=== PATIENT | male | born 1965 | race Hispanic/Latino ===

== ENCOUNTER 2017-01-07 18:32 | Emergency (ER) | payer MEDICARE, OTHER ==
[2017-01-07 18:42] VITALS: BP 98/65; PULSE 79; RESP 18; TEMP 97.8; O2SAT 100
--- NOTE | 2017-01-07 18:57 | ED PDOC ---
Lower Extremity Pain/Injury Time Seen by Provider: 01/07/17 18:44 Chief Complaint (Nursing): Lower Extremity Problem/Injury Chief Complaint (Provider): Right knee pain History Per: Patient, Family Additional Complaint(s): 51 y/o male with a past medical history of down syndrome who presents to the emergency department with a complaint of a right knee pain after bowling with family yesterday, 01/06/2017, around 11pm. As per history from family member, patient appeared to have knee buckling, was given Motrin around 1500, and brought to the emergency department for an evaluation. Denies any further medical complaints. PMD: Dr. Heron Flores MD Past Medical History Reviewed: Historical Data, Nursing Documentation, Vital Signs Vital Signs: Last Vital Signs Temp 97.8 F 01/07/17 18:35 Pulse 79 01/07/17 18:35 Resp 18 01/07/17 18:35 BP 98/65 L 01/07/17 18:35 Pulse Ox 100 01/07/17 18:35 - Medical History PMH: Asthma, Hyperlipidemia Other PMH: Down syndrome - Surgical History Surgical History: No Surg Hx - Family History Family History: States: Unknown Family Hx - Living Arrangements Living Arrangements: With Family - Social History Current smoker - smoking cessation education provided: No Alcohol: None Drugs: Denies - Home Medications Home Medications: Ambulatory Orders Medication Instructions Recorded Ibuprofen [Motrin] 600 mg PO Q8 PRN #21 tab 01/31/15 Naproxen 375 mg PO Q8 PRN #21 tablet 01/07/17 - Allergies Allergies/Adverse Reactions: Allergies Allergy/AdvReac Type Severity Reaction Status Date / Time No Known Allergies Allergy Verified 01/31/15 14:33 Review of Systems ROS Statement: Except As Marked, All Systems Reviewed And Found Negative (As per HPI otherwise negative) Musculoskeletal: Positive for: Other (Right knee pain) Physical Exam - Reviewed Nursing Documentation Reviewed: Yes Vital Signs Reviewed: Yes - Physical Exam Appears: Positive for: Non-toxic, No Acute Distress Head Exam: Positive for: ATRAUMATIC, NORMAL INSPECTION, NORMOCEPHALIC Skin: Positive for: Normal Color, Warm, Dry Extremity: Positive for: Normal ROM (Able to flex and extend toes without difficulty), Calf Tenderness (Tenderness to the proximal region of right calf). Negative for: Other (Negative lynne's sign. No effusion noted to the right knee) Neurologic/Psych: Positive for: Alert, Oriented (x3) - ECG O2 Sat by Pulse Oximetry: 100 (RA) Pulse Ox Interpretation: Normal - Progress ED Course And Treament: xry of knee: no acute injury Duplex of right leg: no dvt Medical Decision Making Medical Decision Making: Time: 1853 Initial Impression: Right knee pain s/p bowling Initial Plan: --Right knee x-ray --Duplex Lower Extrm US --Reevaluation Scribe Attestation: Documented by Jessie Alexandra, acting as a scribe for Juliette monreal PA-C. Provider Scribe Attestation: All medical record entries made by the Scribe were at my direction and personally dictated by me. I have reviewed the chart and agree that the record accurately reflects my personal performance of the history, physical exam, medical decision making, and the department course for this patient. I have also personally directed, reviewed, and agree with the discharge instructions and disposition. Disposition - Clinical Impression Clinical Impression: Knee strain - Patient ED Disposition Is Patient to be Admitted: No - Disposition Referrals: Sancho Badillo MD [Staff Provider] - Disposition: Routine/Home Disposition Time: 19:56 Condition: FAIR Prescriptions: Naproxen 375 mg PO Q8 PRN #21 tablet PRN Reason: Pain, Moderate (4-7) Instructions: Knee Pain (ED) Forms: [employer] (Bulgarian)
--- NOTE | 2017-01-07 20:38 | US ---
EXAM: US Duplex Right Lower Extremity Veins EXAM DATE/TIME: 01/07/2017 7:44 PM CLINICAL HISTORY: 51 years old, male; Pain; Leg, lower; Right; Additional info: R/O dvt TECHNIQUE: Real-time ultrasound scan of the veins of the right lower extremity with color Doppler flow, spectral waveform analysis and compression. COMPARISON: No relevant prior studies available. FINDINGS: Normal-appearing compressibility, flow and augmentation response are seen in the right common femoral, femoral, popliteal and posterior tibial veins. IMPRESSION: NO EVIDENCE OF DEEP VENOUS THROMBOSIS IN THE RIGHT LEG.
--- NOTE | 2017-01-08 10:26 | RAD ---
PROCEDURE: Right Knee Radiographs. HISTORY: knee pain COMPARISON: None. FINDINGS: BONES: Three views of the right knee were performed for right knee pain and trauma. There is a small curvilinear lucency seen in the lateral tibial plateau region on the frontal view. This could represent vascular channel, however a small nondisplaced fracture in this region could not be excluded. Correlation with symptoms would be suggested. Right fibula is intact. Very mild degenerative changes are seen elsewhere. Possible small No joint effusion is seen. Patella has some minor lateral patellar tilting and subluxation. JOINTS: Mild degenerative changes. JOINT EFFUSION: Small joint effusion OTHER FINDINGS: No loose body is seen. No focal osteochondral defect is noted. IMPRESSION: Small curvilinear lucency at the lateral tibial plateau region which may reflect a vascular channel, however a small nondisplaced fracture is not excluded. No preliminary reading was provided by the emergency room physician at the time of the exam. Therefore this was called into the emergency room as a variance. On-call emergency room physician was notified.
== END 2017-01-07 20:25 | disposition home or self-care (01) ==
LOC: H.ER 18:32
DX: S86.911A Strain of unspecified muscle(s) and tendon(s) at lower leg level, right leg, initial encounter (principal); X58.XXXA Exposure to other specified factors, initial encounter; Y93.54 Activity, bowling

== ENCOUNTER 2017-01-08 11:05 | Emergency (ER) | payer MEDICARE, OTHER ==
[2017-01-08 11:15] VITALS: BP 116/65; PULSE 78; RESP 18; TEMP 98.1; O2SAT 96
--- NOTE | 2017-01-08 11:40 | ED PDOC ---
Lower Extremity Pain/Injury Time Seen by Provider: 01/08/17 11:21 Chief Complaint (Nursing): Lower Extremity Problem/Injury Chief Complaint (Provider): called back for further knee imaging History Per: Family, Other (prior chart) Onset/Duration Of Symptoms: Days (2-3) Current Symptoms Are (Timing): Still Present Additional Complaint(s): 51yo male with history of Downs Syndrome represents w family, called back for further imaging after radiologist concerned about small lucency in tibial plateau- could be vascular groove vs nondisplaced fracture. Per family patient has been favoring right leg/knee, was bowling and afterwards was walking and then wouldnt place weight on R knee, no falls or known observed trauma, Since then he has been ambulating but with CHRISTA bandage and some limping. No reports head or neck trauma. Past Medical History Reviewed: Historical Data, Nursing Documentation, Vital Signs Vital Signs: Last Vital Signs Temp 98.1 F 01/08/17 11:12 Pulse 78 01/08/17 11:12 Resp 18 01/08/17 11:12 BP 116/65 01/08/17 11:12 Pulse Ox 96 01/08/17 11:12 - Medical History PMH: Asthma, Hyperlipidemia Other PMH: Downs Syndrome - Family History Family History: States: Unknown Family Hx - Living Arrangements Living Arrangements: With Family - Social History Current smoker - smoking cessation education provided: No - Home Medications Home Medications: Ambulatory Orders Medication Instructions Recorded Ibuprofen [Motrin] 600 mg PO Q8 PRN #21 tab 01/31/15 Naproxen 375 mg PO Q8 PRN #21 tablet 01/07/17 - Allergies Allergies/Adverse Reactions: Allergies Allergy/AdvReac Type Severity Reaction Status Date / Time No Known Allergies Allergy Verified 01/31/15 14:33 Review of Systems ROS Statement: Except As Marked, All Systems Reviewed And Found Negative (per family) Constitutional: Negative for: Fever, Chills ENT: Negative for: Ear Discharge, Nose Discharge Cardiovascular: Negative for: Orthopnea Respiratory: Negative for: Shortness of Breath Musculoskeletal: Positive for: Leg Pain Skin: Negative for: Rash Neurological: Negative for: Seizures, Altered Mental Status Physical Exam - Reviewed Nursing Documentation Reviewed: Yes Vital Signs Reviewed: Yes - Physical Exam Appears: Positive for: Well, Non-toxic (Downs syndrome features) Cardiovascular/Chest: Negative for: Tachycardia Respiratory: Negative for: Respiratory Distress Extremity: Positive for: Other (mild R knee tenderness, minimal tenderness tibial plateau, FROM ankles and hips) - ECG O2 Sat by Pulse Oximetry: 96 (RA) Pulse Ox Interpretation: Normal Medical Decision Making Medical Decision Making: to obtain CT knee r/o fracture given XR report tylenol ordered for pain 1430 patient did not tolerate lying flat for CT imaging. Unable to position patient successfully for accurate imaging on CT table. Pt w history of Downs Syndrome w poor insight. Sister is legal guardian, states will take home to followup as outpatient. Dr Foy paged to inform, he will see in office tomorrow to attempt to arrange outpatient imaging. Patient is ambulatory with minimal gait disturbance. Knee immobilizer given but sister thinks will be poorly tolerated by patient. On re-eval he was sitting "mongolian style" and in no distress. Explained importance of definitive imaging, potential for ligamentous injury besides plateau fx, and need for followup. Disposition - Clinical Impression Clinical Impression: Knee injury - Patient ED Disposition Is Patient to be Admitted: No Counseled Patient/Family Regarding: Studies Performed, Diagnosis, Need For Followup, Rx Given - Disposition Referrals: Amaury Driscoll III, MD [Staff Provider] - Disposition: Routine/Home Disposition Time: 15:30 Condition: GOOD Additional Instructions: See orthopedics for definitive care and testing. You may need further testing. Unable to get CT knee today due to intolerance of lying flat. Recommend outpatient workup, may require MRI, CT under sedation, or repeat XRay in 4-[address] Foy is aware of your case, stop into office tomorrow for re-evaluation. Instructions: Knee Pain (ED), Arthralgia (ED) Forms: [employer] (Japanese)
== END 2017-01-08 15:31 | disposition home or self-care (01) ==
LOC: H.ER 11:05
DX: M25.561 Pain in right knee (principal)

== ENCOUNTER 2017-04-10 15:33 | Emergency (ER) | payer MEDICARE, OTHER ==
[2017-04-10 15:39] VITALS: BP 100/58; TEMP 98
--- NOTE | 2017-04-10 16:54 | ED PDOC ---
HPI: Abdomen Time Seen by Provider: 04/10/17 15:59 Chief Complaint (Nursing): Abdominal Pain Chief Complaint (Provider): Abdominal Pain History Per: Family (Mother) History/Exam Limitations: no limitations Onset/Duration Of Symptoms: Worse Since (yesterday) Current Symptoms Are (Timing): Still Present Additional Complaint(s): 51 y/o male with a past medical history of Down syndrome, brought to the ER by mother for 1 month history of intermittent mild abdominal pain. On Monday patient saw PMD, who recommended a laxative, however yesterday the pain acutely worsened and persists in severity today. Patient also with decreased appetite today, but is tolerating liquids. Mother reports patient is making retching noises but no vomiting. Mother also states patient has bowel movement every 2-3 days despite her daily reminders to go. No urinary symptoms, fever, chills, melena, or hematochezia. Mother denies dietary changes. PMD: Dr. Flores Past Medical History Reviewed: Historical Data, Nursing Documentation, Vital Signs Vital Signs: Last Vital Signs Temp 98.0 F 04/10/17 15:36 Pulse 78 04/10/17 19:25 Resp 18 04/10/17 19:25 BP 100/58 L 04/10/17 15:36 Pulse Ox 95 04/10/17 20:31 - Medical History PMH: Asthma, Hyperlipidemia Other PMH: Down syndrome - Surgical History Surgical History: No Surg Hx - Family History Family History: States: Unknown Family Hx - Living Arrangements Living Arrangements: With Family - Social History Current smoker - smoking cessation education provided: No Alcohol: None Drugs: Denies - Home Medications Home Medications: Ambulatory Orders Medication Instructions Recorded Ibuprofen [Motrin] 600 mg PO Q8 PRN #21 tab 01/31/15 Naproxen 375 mg PO Q8 PRN #21 tablet 01/07/17 Dicyclomine [Bentyl] 20 mg PO BID PRN #30 tab 04/10/17 - Allergies Allergies/Adverse Reactions: Allergies Allergy/AdvReac Type Severity Reaction Status Date / Time No Known Allergies Allergy Verified 01/31/15 14:33 Review of Systems ROS Statement: Except As Marked, All Systems Reviewed And Found Negative (As per HPI, otherwise negative) Constitutional: Negative for: Fever, Chills Gastrointestinal: Positive for: Nausea (with retching behavior), Abdominal Pain , Constipation, Other (Decreased appetite). Negative for: Vomiting, Melena, Hematochezia Genitourinary Male: Negative for: Dysuria, Frequency, Incontinence, Hematuria Physical Exam - Reviewed Nursing Documentation Reviewed: Yes Vital Signs Reviewed: Yes - Physical Exam Appears: Positive for: No Acute Distress (appear younger than given age) Head Exam: Positive for: ATRAUMATIC (Downs syndrome anatomy) Skin: Positive for: Warm, Dry Eye Exam: Positive for: EOMI, PERRL ENT: Positive for: Pharynx Is (clear), Other (dry mucus membranes) Neck: Positive for: Painless ROM, Supple Cardiovascular/Chest: Positive for: Regular Rate, Rhythm, Chest Non Tender. Negative for: Murmur Respiratory: Positive for: Normal Breath Sounds. Negative for: Respiratory Distress Gastrointestinal/Abdominal: Positive for: Bowel Sounds, Soft, Tenderness ( diffuse), Distended (soft). Negative for: Mass, Guarding, Rebound Back: Positive for: Normal Inspection. Negative for: Decreased ROM Extremity: Positive for: Normal ROM. Negative for: Deformity Lymphatic: Negative for: Adenopathy Neurologic/Psych: Positive for: Alert. Negative for: Motor/Sensory Deficits - Laboratory Results Result Diagrams: 04/10/17 16:53 04/10/17 16:53 - ECG O2 Sat by Pulse Oximetry: 95 (RA) Pulse Ox Interpretation: Normal Medical Decision Making Medical Decision Making: Initial Impression: Abdominal pain Differential includes but is not limited to: constipation, gastroenteritis, colitis, pancreatitis Time: 16:21 Initial Plan: --Lactic acid --Lipase --Magnesium --Phosphorous --CMP --CBC w/ differential --PTT --Prothrombin time --ED urine dipstick --Blood culture --Urine culture --Pending X-Ray Obstructive Series Time: 17:55 Labs with no emergently significant abnormalities. X-Ray Obstructive Series demonstrates mildly dilated loops of bowel and multiple air fluid levels. Discussed findings with parents, and patient will have CT in the ER. Mother is concerned due to patients fear of CT scans. Patient will be given Lorazepam and Benadryl for anxiolysis, and started on IV fluids. Accession No. : [id number] Patient Name / ID : DIDIER DENISE / [id number] Exam Date : 04/10/2017 16:59:07 ( Approved ) Study Comment : Sex / Age : M / 51Y Creator : Mary Alfaro MD Dictator : Mary Alfaro MD Application Infrastructure Engineer : Char Puller : Mary Alfaro MD Approver2 : Report Date : 04/10/2017 17:50:05 My Comment : PROCEDURE: Radiographs of the chest and abdomen (obstructive series) HISTORY: abdominal pain COMPARISON: None available. TECHNIQUE: AP radiograph of the chest, with upright and supine radiographs of the abdomen. FINDINGS: Examination limited by habitus. CHEST: Cardiomegaly. Probable small bilateral pleural effusions and bibasilar atelectasis/ infiltrates. Mild pulmonary venous congestion. No definite pneumothorax. Please note that chest x-ray has limited sensitivity for the detection of pulmonary masses. ABDOMEN AND PELVIS: Nonspecific bowel gas pattern with evidence of several air-fluid levels. No definite free air. Degenerative changes. IMPRESSION: Cardiomegaly. Probable small bilateral pleural effusions and bibasilar atelectasis/ infiltrates. Mild pulmonary venous congestion. Nonspecific bowel gas pattern with evidence of several air-fluid levels. Suggest clinical correlation and CT of the abdomen and pelvis for further evaluation if indicated. Pt sleepy. Able to go for CT. Patient Name: HOWIE VELÁSQUEZ (Age): 1965 51 Gender: M Date of Exam: 04/10/2017 Referring Physician: Nisa Nunez # of Images: [id number] Ordered As: CT ABD PELVIS IV CONTRAST ONLY Page 1 of 2 EXAM: CT Abdomen and Pelvis With Intravenous Contrast EXAM DATE/TIME: 04/10/2017 5:59 PM CLINICAL HISTORY: 51 years old, male; Pain; Abdominal pain; Generalized; Additional info: Abd pain TECHNIQUE: Axial computed tomography images of the abdomen and pelvis with intravenous contrast. All CT scans at this facility use one or more dose reduction techniques, viz.: automated exposure control; ma/kV adjustment per patient size (including targeted exams where dose is matched to indication; i.e. head); or iterative reconstruction technique. Coronal and sagittal reformatted images were created and reviewed. CONTRAST: 80 mL of [id number] administered intravenously. COMPARISON: No relevant prior studies available. FINDINGS: Lower thorax: No acute findings. ABDOMEN: Liver: There are no focal liver lesions present. There is hepatomegaly and fatty infiltration of the liver. Gallbladder and bile ducts: Unremarkable. No calcified stones. No ductal dilation. Pancreas: Unremarkable. No mass. No ductal dilation. Spleen: Unremarkable. No splenomegaly. Adrenals: Unremarkable. No mass. Kidneys and ureters: Small cyst in the right kidney. No solid mass. No hydronephrosis. Stomach and bowel: Fluid filled colon without wall thickening or significant dilation, consistent with a nonspecific diarrheal illness. No obstruction. No mucosal thickening. Appendix: The appendix is not identified with certainty, but there are no secondary C.T. findings of appendicitis. PELVIS: Bladder: Apparent bladder wall thickening may be secondary to incomplete filling versus cystitis. Reproductive: Unremarkable as visualized. ABDOMEN and PELVIS: Intraperitoneal space: Unremarkable. No free air. No significant fluid collection. Bones/joints: No acute fracture. No dislocation. Soft tissues: There is a small fat-containing umbilical hernia. Vasculature: Unremarkable. No abdominal aortic aneurysm. Lymph nodes: Unremarkable. No enlarged lymph nodes. IMPRESSION: Apparent bladder wall thickening may be secondary to incomplete filling versus cystitis. Clinical and laboratory correlation recommended. Fluid filled colon without wall thickening or significant dilation, consistent with a nonspecific diarrheal illness. Thank you for allowing us to participate in the care of your patient. Dictated and Authenticated by: Kavya Linton MD 04/10/2017 7:48 PM Eastern Time ([place] & [place]) DW parents findings. Pt sleepy from anxiolytic. Will continue to observe until more alert. Mother reports that patient had "messy" bowel movements over last two days, but didn't actually see it, so was not sure if it was diarrhea. Advised to DC colace. Will rx Bentyl for pain and pt to f/u tomorrow with Dr Flores. 830p Pt awake and alert. Ambulating without difficulty. STable for DC. Scribe Attestation: Documented by Bernarda Choudhury, acting as a scribe for Nisa Nunez MD Provider Scribe Attestation: All medical record entries made by the Scribe were at my direction and personally dictated by me. I have reviewed the chart and agree that the record accurately reflects my personal performance of the history, physical exam, medical decision making, and the department course for this patient. I have also personally directed, reviewed, and agree with the discharge instructions and disposition. Disposition - Clinical Impression Clinical Impression: Abdominal pain, Diarrhea Counseled Patient/Family Regarding: Studies Performed, Diagnosis, Need For Followup, Rx Given - Disposition Referrals: Heron Flores MD [Staff Provider] - 04/11/17 (FOLLOW UP WITH DR FLORES TOMORROW FOR REEVALUATION) Disposition: Routine/Home Disposition Time: 20:26 Condition: STABLE Prescriptions: Dicyclomine [Bentyl] 20 mg PO BID PRN #30 tab PRN Reason: abdominal pain Instructions: Acute Diarrhea (ED), Abdominal Pain (ED), Nutrition Tips for Relief of Diarrhea (ED) Forms: [employer] (Maldivian)
[2017-04-10 17:02] LABS: BASO % 0.2 % (0.0-2.0); EOS % 0.3 % (0.0-4.0); HEMOGLOBIN 16.2 g/dL (12.0-18.0); LYMPH # 0.3 K/uL (1.0-4.3); LYMPH % 4.1 % (20.0-40.0); MEAN CELL VOLUME 99.3 fl (80.0-94.0); MEAN CORPUSCULAR HEMOGLOBIN 33.2 pg (27.0-31.0); MEAN CORPUSCULAR HGB CONC 33.4 g/dL (33.0-37.0); MEAN PLATELET VOLUME 7.1 fl (7.2-11.7); MONO # 0.6 K/uL (0.0-0.8); MONO % 8.2 % (0.0-10.0); NEUT # 6.5 K/uL (1.8-7.0); NEUT % 87.2 % (50.0-75.0); NRBC % 0.1 % (0.0-0.0); PLATELET COUNT 257 K/uL (130-400); RBC 4.88 Mil/uL (4.40-5.90); RED CELL DISTRIBUTION WIDTH 13.8 % (11.5-14.5); WHITE BLOOD COUNT 7.5 K/uL (4.8-10.8)
[2017-04-10 17:15] LABS: ALB/GLOB RATIO 1.1 (1.0-2.1); ALT/SGPT 39 U/L (21-72); AST/SGOT 34 U/L (17-59); BLOOD UREA NITROGEN 16 mg/dl (9-20); CALCIUM 8.6 mg/dL (8.4-10.2); GFR AFRICAN-AMERICAN > 60; GFR NON-AFRICAN AMERICAN > 60; LIPASE 110 U/L (23-300)
[2017-04-10 17:20] LABS: INR 1.3 (0.9-1.2); PARTIAL THROMBOPLASTIN TIME 33.6 Seconds (25.6-37.1); PROTHROMBIN TIME 14.4 Seconds (9.8-13.1)
[2017-04-10 17:47] LABS: BANDS 2 % (0-2); LYMPHOCYTE 5 % (20-50); MONOCYTE 9 % (0-10); NEUTROPHIL 84 % (42-75); PLATELET ESTIMATE NORMAL (NORMAL); TOTAL CELLS COUNTED 100
[2017-04-10] MEDS ORDERED: DiphenhydrAMINE 50 mg/ml Inj IVP STA (17:51)
[2017-04-10] MEDS ORDERED: Sodium Chloride 0.9% 1,000 ML IV STA (17:51)
--- NOTE | 2017-04-10 17:51 | RAD ---
PROCEDURE: Radiographs of the chest and abdomen (obstructive series) HISTORY: abdominal pain COMPARISON: None available. TECHNIQUE: AP radiograph of the chest, with upright and supine radiographs of the abdomen. FINDINGS: Examination limited by habitus. CHEST: Cardiomegaly. Probable small bilateral pleural effusions and bibasilar atelectasis/ infiltrates. Mild pulmonary venous congestion. No definite pneumothorax. Please note that chest x-ray has limited sensitivity for the detection of pulmonary masses. ABDOMEN AND PELVIS: Nonspecific bowel gas pattern with evidence of several air-fluid levels. No definite free air. Degenerative changes. IMPRESSION: Cardiomegaly. Probable small bilateral pleural effusions and bibasilar atelectasis/infiltrates. Mild pulmonary venous congestion. Nonspecific bowel gas pattern with evidence of several air-fluid levels. Suggest clinical correlation and CT of the abdomen and pelvis for further evaluation if indicated.
[2017-04-10] MEDS ORDERED: DiphenhydrAMINE 50 mg/ml Inj ONE (17:59)
[2017-04-10] MEDS ORDERED: Sodium Chloride 0.9% 50 ML IV ONE (18:09)
[2017-04-10] MEDS ORDERED: Iohexol 300 100 ML IJ ONE ×2 (18:09→19:01)
[2017-04-10 19:26] VITALS: PULSE 78; RESP 18
[2017-04-10 19:53] VITALS: O2SAT 95
--- NOTE | 2017-04-11 09:08 | CT ---
PROCEDURE: CT Abdomen and Pelvis with contrast HISTORY: abd pain COMPARISON: None. TECHNIQUE: Contrast dose: 95 mL Omnipaque 300 Radiation dose: Total exam DLP = 2086.69 mGy-cm. This CT exam was performed using one or more of the following dose reduction techniques: Automated exposure control, adjustment of the mA and/or kV according to patient size, and/or use of iterative reconstruction technique. FINDINGS: LOWER THORAX: Unremarkable. LIVER: Mild hepatomegaly. The liver measures approximately 18.9 cm craniocaudal. Diffusely diminished attenuation of the liver consistent with fatty infiltration. There is mild ill-defined high attenuation about the gallbladder fossa consistent with focal fatty sparing. No mass. Smooth contour. No biliary ductal dilatation. GALLBLADDER AND BILE DUCTS: Unremarkable. PANCREAS: Unremarkable. No gross lesion or ductal dilatation. SPLEEN: Unremarkable. ADRENALS: Unremarkable. No mass. KIDNEYS AND URETERS: Unremarkable. No hydronephrosis. No solid mass. VASCULATURE: Unremarkable. No aortic aneurysm. BOWEL: Unremarkable. No obstruction. No gross mural thickening. APPENDIX: Not identified. No secondary findings to suggest acute appendicitis. PERITONEUM: Unremarkable. No free fluid. No free air. LYMPH NODES: Unremarkable. No enlarged lymph nodes. BLADDER: Poorly distended. Thickened bladder wall may reflect inadequate distention or cystitis. Correlate clinically. REPRODUCTIVE: Unremarkable prostate BONES: No acute fracture. Mild thoracic levoscoliosis. OTHER FINDINGS: None. IMPRESSION: Mildly thickened bladder wall with poorly distended bladder. Possibly artifact. Correlate clinically for cystitis. Mild hepatomegaly with fatty infiltration. Preliminary interpretation of this examination was reported by [employer] at 7:48 p.m. on 04/10/2017. There is concurrence of this report with the preliminary interpretation.
== END 2017-04-10 20:45 | disposition home or self-care (01) ==
LOC: H.ER 15:33
DX: R10.9 Unspecified abdominal pain (principal); R19.7 Diarrhea, unspecified; Q90.9 Down syndrome, unspecified; E78.5 Hyperlipidemia, unspecified; J45.909 Unspecified asthma, uncomplicated
CPT/HCPCS: 74022; 74177; 80053; 83605; 83690; 83735; 84100; 85025; 85610; 85730; 87040; 96374; 96375; 99284; J1200; J2060; J7040; Q9967